=== PATIENT | female | born 1960 | race African-American/Black ===

== ENCOUNTER 2021-09-01 13:23 | Emergency (ER) | payer BC ==
[2021-09-01 13:33] VITALS: BP 163/92; PULSE 89; TEMP 98.9; BMI 30.9
[2021-09-01 14:07] LABS: EPITHELIAL CELLS FEW /hpf
[2021-09-01] MEDS ORDERED: SULFAMETHOXAZOLE/TRIMETHOPRIM 800MG/160MG D.S. TABLET PO ONE (14:15)
[2021-09-01] MEDS ORDERED: SULFAMETHOXAZOLE/TRIMETHOPRIM 800MG/160MG D.S. TABLET ONE (14:20)
== END 2021-09-01 14:22 | disposition home or self-care (01) ==
LOC: FER 13:23
DX: N30.00 Acute cystitis without hematuria (principal)
CPT/HCPCS: 81003; 81015; 87086; 99283-25